=== PATIENT | female | born 1995 | race Caucasian/White ===

== ENCOUNTER 2017-03-13 00:54 | Inpatient (IN) | payer MEDICAID ==
--- NOTE | 2017-03-13 01:40 | EDPHY ---
H & P Stated Complaint: poss infection around feeding tube HPI/ROS: HPI CHIEF COMPLAINT: Infection around feeding tube. 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 She has never had an infection around this like this before. She was seen by [facility] earlier today and got IV Rocephin. However she tells me the redness and pain is worse this evening. No fever. She does tell me the swelling and pain around her PEG tube site has gotten worse. She became concerned the infection is getting worse and decided come the emergency room. Past Medical History: Mass cell disease, eosinophilic esophagitis, Иван- Danlos syndrome, mitochondrial disease Past Surgical History: PEG tube Social History: Denies daily use of drugs alcohol tobacco products. Family History: Noncontributory ROS REVIEW OF SYSTEMS: A comprehensive 10 point review of systems is otherwise negative aside from elements mentioned in the history of present illness. Exam Constitutional appears otherwise well nontoxic triage nursing summary reviewed , vital signs reviewed, awake/alert. Eyes normal conjunctivae and sclera, EOMI, PERRLA. HENT normal inspection, atraumatic, moist mucus membranes, no epistaxis, neck supple/ no meningismus, no raccoon eyes. Respiratory clear to auscultation bilaterally, normal breath sounds, no respiratory distress, no wheezing. Cardiovascular rate normal, regular rhythm, no murmur, no edema, distal pulses normal. Gastrointestinal mid abdomen peg tube site surrounding erythema very minimal pus, and a bullous looking lesion. no rebound, no guarding, normal bowel sounds , no distension, no pulsatile mass. Genitourinary no CVA tenderness. Musculoskeletal no midline vertebral tenderness, full range of motion, no calf swelling, no tenderness of extremities, no meningismus, good pulses, neurovascularly intact. Skin pink, warm, & dry, no rash, skin atraumatic. Neurologic awake, alert and oriented x 3, AAOx3, moves all 4 extremities equally, motor intact, sensory intact, CN II-XII intact, normal cerebellar, normal vision, normal speech. Psychiatric normal mood/affect. Heme/Lymph/Immune no lymphadenopathy. Differential Diagnosis: Includes but is not limited to in no particular order anterior abdominal wall infection, MRSA infection, abdominal wall abscess, peg tube site infection Medical Decision Making: Plan for this patient IV establishment with IV blood draw, CT scan abdomen pelvis with IV contrast to help delineate to see how far this tracks. Re-evaluation: 0310AM: Patient's CT scan reviewed by Dr. Allen with me. This shows cellulitis surrounding infection of the PEG tube there is no intra-abdominal abscess. I have ordered this patient IV vancomycin. Blood cultures. Patient will be admitted to Dr. Bond, hospital service. She is hemodynamically stable no evidence sepsis. Source: Patient - Personal History LMP (Females 10-55): IUD In Place Current Tetanus Diphtheria and Acellular Pertussis (TDAP): Yes - Medical/Surgical History Hx Asthma: No Hx Chronic Respiratory Disease: No Hx Diabetes: No Hx Cardiac Disease: No Hx Renal Disease: No Hx Cirrhosis: No Hx Alcoholism: No Hx HIV/AIDS: No Hx Splenectomy or Spleen Trauma: No Other PMH: eosiophilic esophigitis, mass cell activation syndrome, иван damos syndrome, caldwell (postural orthostatic, tachycardia syndrome) mitochomdrial disease,. disaccharidase enzyme defficiency, celiac disease, migraines, vocal cord disfunction - Social History Smoking Status: Never smoked Constitutional: Initial Vital Signs Temperature (C) 37 C 03/13/17 01:04 Heart Rate 100 03/13/17 01:04 Respiratory Rate 97 H 03/13/17 01:04 Blood Pressure 109/69 03/13/17 01:04 O2 Delivery Mode Room Air Allergies/Adverse Reactions: corn syrup Allergy (Verified 03/13/17 01:03) gluten Allergy (Verified 03/13/17 01:03) lactose Allergy (Verified 03/13/17 01:03) Home Medications: Medication Instructions Recorded Buprenorphine [Butrans 7.5 mcg/hr] 1 each TD FR 03/13/17 Cetirizine [ZyrTEC 10 mg (*)] 10 mg PO HS 03/13/17 Cyclobenzaprine [Flexeril 10 MG 10 mg PO HS 03/13/17 (*)] DULoxetine [Cymbalta 60 MG (*)] 60 mg PO BID 03/13/17 Ergocalciferol [Vitamin D2 (*)] 50,000 unit PO TU 03/13/17 Fluticasone Nasal [Flonase Nasal 2 sprays NASAL HS 03/13/17 [place] (RX)] Gabapentin [Neurontin 100 MG (*)] 200 mg PO TID 03/13/17 Hydroxyzine 5mg/Ml Compounded 9 ml PO BID PRN 03/13/17 Imipramine HCl [Tofranil] 50 mg PO HS 03/13/17 Lansoprazole [PREVACID 30mg/10ml 30 mg PO DAILY 03/13/17 susp (Adult) (*)] Montelukast Sodium [Singulair 4 mg 8 mg PO DAILY18 03/13/17 (*)] Ondansetron Odt [Zofran Odt 4 mg 4 mg PO Q8HRS PRN 03/13/17 (*)] Propranolol HCl [Propranolol HCl 60 mg PO DAILY 03/13/17 ER] Ranitidine HCl [Zantac 75] 75 mg PO HS 03/13/17 Sennosides/Docusate Sodium 4 each PO BID 03/13/17 [Senna-Docusate Sodium Tablet] Spironolactone [Aldactone 50 MG 50 mg PO DAILY 03/13/17 (RX)] Veramyst 1 spray PO BID 03/13/17 diphenhydrAMINE [Benadryl 25 MG 25 mg PO HS PRN 03/13/17 (*)] Medical Decision Making - Data Points Laboratory Results: Laboratory Results 03/13/17 02:12 03/13/17 02:12 Medications Given: Enoxaparin Sodium (Lovenox) 40 mg SC DAILY [facility] Stop: 09/09/17 08:59 Last Admin: 03/13/17 10:21 Dose: Not Given Cefazolin Sodium/Dextrose (Ancef 1 Gm (Premix)) 50 mls @ 200 mls/hr IV Q8HRS [facility] PRN Reason: Protocol Stop: 04/12/17 21:59 Last Admin: 03/13/17 22:44 Dose: 50 mls Miscellaneous Medication (Fluticasone Nasal [Flonase Nasal [place]]) 2 sprays NASAL [facility] Stop: 09/09/17 20:59 Last Admin: 03/13/17 22:47 Dose: 2 spray Miscellaneous Medication (Gabapentin [Neurontin 100 Mg (*)]) 200 mg PO TID [facility] Stop: 09/09/17 21:59 Last Admin: 03/13/17 22:47 Dose: 2 tab Miscellaneous Medication (Cetirizine [Zyrtec 10 Mg (*)]) 0 mg PO HS [facility] Stop: 09/09/17 22:44 Last Admin: 03/13/17 22:48 Dose: 10 mg Miscellaneous Medication (Duloxetine [Cymbalta 60 Mg (*)]) 0 mg PO BID [facility] Stop: 09/09/17 22:44 Last Admin: 03/13/17 22:46 Dose: 60 mg Miscellaneous Medication (Ranitidine Hcl [Zantac 75]) 0 mg PO [facility] Stop: 09/09/17 22:44 Last Admin: 03/13/17 22:44 Dose: 150 mg Miscellaneous Medication (Montelukast Sodium [Singulair 4 Mg (*)]) 0 mg PO DAILY18 [facility] Stop: 09/09/17 22:44 Last Admin: 03/13/17 23:11 Dose: Not Given Miscellaneous Medication (Sennosides/Docusate Sodium [Senna-Docusate Sodium Tablet]) 0 each PO BID [facility] Stop: 09/09/17 22:44 Last Admin: 03/13/17 22:46 Dose: 4 tab Miscellaneous Medication (Cyclobenzaprine [Flexeril 10 Mg (*)]) 0 mg PO [facility] Stop: 09/09/17 22:44 Last Admin: 03/13/17 22:45 Dose: 10 mg Miscellaneous Medication (Imipramine Hcl [Tofranil]) 0 mg PO [facility] Stop: 09/09/17 22:44 Last Admin: 03/13/17 22:47 Dose: 25 mg Miscellaneous Medication (Veramyst) 0 spray PO BID [facility] Stop: 09/09/17 23:14 Last Admin: 03/13/17 23:12 Dose: Not Given Discontinued Medications Sodium Chloride (Ns) 1,000 mls @ 0 mls/hr IV EDNOW ONE; [facility] PRN Reason: Protocol Stop: 03/13/17 01:45 Last Admin: 03/13/17 02:18 Dose: Not Given Vancomycin/Sodium Chloride (Vancomycin 1 Gm (Premix)) 250 mls @ 250 mls/hr IV EDNOW ONE PRN Reason: Protocol Stop: 03/13/17 04:07 Last Admin: 03/13/17 04:14 Dose: 250 mls Vancomycin HCl 1.25 gm/ (Dextrose) 250 mls @ 166.667 mls/hr IV Q12H [facility] Stop: 04/12/17 15:59 Last Admin: 03/13/17 17:22 Dose: 250 mls Vancomycin HCl 1.25 gm/ (Dextrose) 250 mls @ 125 mls/hr IV Q12H [facility] Stop: 04/12/17 17:29 Last Admin: 03/13/17 23:10 Dose: Not Given Miscellaneous Medication (Veramyst) 0 spray PO BID [facility] Stop: 09/09/17 20:59 Last Admin: 03/13/17 23:08 Dose: Not Given Miscellaneous Medication (Cetirizine [Zyrtec 10 Mg (*)]) 10 mg PO [facility] Stop: 09/09/17 20:59 Last Admin: 03/13/17 23:08 Dose: Not Given Miscellaneous Medication (Cyclobenzaprine [Flexeril 10 Mg (*)]) 10 mg PO [facility] Stop: 09/09/17 20:59 Last Admin: 03/13/17 23:09 Dose: Not Given Miscellaneous Medication (Duloxetine [Cymbalta 60 Mg (*)]) 60 mg PO BID [facility] Stop: 09/09/17 20:59 Last Admin: 03/13/17 23:09 Dose: Not Given Miscellaneous Medication (Imipramine Hcl [Tofranil]) 50 mg PO [facility] Stop: 09/09/17 20:59 Last Admin: 03/13/17 23:09 Dose: Not Given Miscellaneous Medication (Montelukast Sodium [Singulair 4 Mg (*)]) 8 mg PO DAILY18 [facility] Stop: 09/09/17 17:59 Last Admin: 03/13/17 23:10 Dose: Not Given Miscellaneous Medication (Ranitidine Hcl [Zantac 75]) 75 mg PO [facility] Stop: 09/09/17 20:59 Last Admin: 03/13/17 23:10 Dose: Not Given Miscellaneous Medication (Sennosides/Docusate Sodium [Senna-Docusate Sodium Tablet]) 4 each PO BID [facility] Stop: 09/09/17 20:59 Last Admin: 03/13/17 23:10 Dose: Not Given Departure - Departure Disposition: [facility] Acute Clinical Impression: Abdominal wall cellulitis, Infection of PEG site Condition: Fair
[2017-03-13] MEDS ORDERED: NS 1,000 ML IV ONE (01:44)
[2017-03-13] MEDS ORDERED: IOPAMIDOL (ISOVUE-300) 100 ML BTL ONE (01:47)
[2017-03-13 02:19] LABS: % IMMATURE GRANULYOCYTES 0.3 % (0.0-1.1); ABSOLUTE IMMATURE GRANULOCYTES 0.03 10^3/uL (0.00-0.10); ADD DIFF? NO; ADD MORPH? NO; ADD SCAN? NO; ATYPICAL LYMPHOCYTE FLAG 0 (0-99); FRAGMENT RBC FLAG 0 (0-99); HEMATOCRIT 40.3 % (38.0-47.0); HEMOGLOBIN 13.3 g/dL (12.6-16.3); LEFT SHIFT FLG 0 (0-99); LIPEMIA HEMOLYSIS FLAG 80 (0-99); MEAN CELL HEMOGLOBIN 29.6 pg (27.9-34.1); MEAN CELL VOLUME 89.6 fL (81.5-99.8); PLATELET CLUMPS FLAG 0 (0-99); PLATELET COUNT 331 10^3/uL (150-400); RED CELL DISTRIBUTION WIDTH 12.3 % (11.5-15.2)
[2017-03-13 02:27] LABS: PROTIME(PATIENT) 13.1 SEC (12.0-15.0); SEDIMENTATION RATE 13 MM/HR (0-20)
[2017-03-13 02:28] LABS: APTT 30.7 SEC (23.0-38.0)
[2017-03-13 02:33] LABS: ALANINE AMINOTRANSFERASE 27 IU/L (9-52); ALBUMIN 3.7 g/dL (3.5-5.0); ALKALINE PHOSPHATASE 52 IU/L (38-126); ANION GAP 11 mEq/L (8-16); ASPARTATE AMINOTRANSFERASE 22 IU/L (14-46); BILIRUBIN,TOTAL 0.6 mg/dL (0.1-1.4); BILIRUBIN-CONJUGATED 0.4 mg/dL (0.0-0.5); BILIRUBIN-UNCONJUGATED 0.2 mg/dL (0.0-1.1); C-REACTIVE PROTEIN 9.3 mg/L (<10.0); CALCIUM 9.2 mg/dL (8.5-10.4); CARBON DIOXIDE 21 mEq/l (22-31); CHLORIDE 105 mEq/L (97-110); CREATININE 0.6 mg/dL (0.6-1.0); GLOMERULAR FILTRATION RATE > 60; GLUCOSE 112 mg/dL (70-100); POTASSIUM 4.3 mEq/L (3.5-5.2); SODIUM 137 mEq/L (134-144); TOTAL PROTEIN 6.8 g/dL (6.3-8.2)
[2017-03-13] MEDS ORDERED: VANCOMYCIN HCL/NORMAL SALINE 250 ML IV ONE (03:08)
[2017-03-13] MEDS ORDERED: ONDANSETRON 4 MG/2 ML VIAL IVP PRN (03:49)
[2017-03-13] MEDS ORDERED: ONDANSETRON DISINTEGRATING 4 MG TAB PO PRN (03:49)
[2017-03-13] MEDS ORDERED: ACETAMINOPHEN 325 MG TAB PO PRN (03:49)
--- NOTE | 2017-03-13 05:02 | GHP ---
[f rep st] HISTORY AND PHYSICAL DATE OF ADMISSION: 03/13/2017 CHIEF COMPLAINT: Redness around the PEG tube. HISTORY OF PRESENT ILLNESS: A 21-year-old female with a complicated medical history, including eosi nophilic esophagitis requiring a PEG tube that was placed over 8 years ago by a pediatric provider, who presents with increasing erythema, swelling and pain at the left inferior margin of her PEG tube . The patient is entirely tube feed dependent taking the bulk of her nutritional intake that way. She has had her PEG tube for over 8 years and has not had any complications with it. Describes occa sionally getting some irritation around the PEG tube, which she places a topical skin protectant ove r and the erythema and/or irritation resolves. This new area of erythema associated with a small sc arring area developed increasing swelling and then erythema with associated marked discomfort when p alpating around this raised red area. Therefore, the patient presented to the emergency department for evaluation. She reports some subjective fevers. No chills. Denies any nausea or vomiting. De nies any changes in her bowel habits. She uses stool softeners and has typically slightly constipat ed stool once a day. Denies any dysuria, hematuria, lower extremity edema, vision changes, headache . PAST MEDICAL HISTORY: 1. Eosinophilic esophagitis requiring permanent PEG tube. 2. Иван-Danlos syndrome. 3. Mast cell disease. 4. POTS syndrome. 5. 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 SOCIAL HISTORY: Patient lives at home. Has very limited activity. Denies tobacco, alcohol or illi cit drugs. FAMILY HISTORY: Positive for eosinophilic esophagitis and Иван-Danlos in her father's side. REVIEW OF SYSTEMS: A 10-point review of systems is negative with the exception of that reported in the HPI. PHYSICAL EXAMINATION: VITAL SIGNS: Blood pressure 101/74, heart rate 84, respiratory rate 16, 96% on room air, 36.6. GENERAL: This is a pleasant young obese female lying flat in bed. HEENT: Nota ble for moist mucous membranes. Eye exam is negative for any icterus. CARDIAC: Patient is regular rate and rhythm. PULMONARY: Clear to auscultation bilaterally. GASTROINTESTINAL: Positive bowel sounds. ABDOMEN: Soft. The patient is tender to palpation near the erythematous area, near her P EG tube. Otherwise nontender. MUSCULOSKELETAL: Negative for any lower extremity edema. SKIN: Roby stuart has a nickel-sized enlarged swollen area at the left inferior margin of her PEG tube that is m arkedly tender on palpation, and per pictures provided, has been extending. When pushed around the perimeter, some purulent material is expressible from the PEG tube site. NEUROLOGIC: Patient is al ert and oriented x3. PSYCHIATRIC: She is pleasant and cooperative on interview and examination. DATA: White count 10.4, hematocrit 40.3, platelets of 331, creatinine 0.6, liver function tests nor mal. Beta HCG negative. CT of the abdomen, which I personally reviewed and interpreted shows the G -tube with enhancement of the abdominal wall anteriorly. No free air or ascites noted by Radiology. No abscesses noted. ASSESSMENT AND PLAN: This is a 21-year-old female, presenting with pain and erythema at her gastros nawaf tube site. 1. Acute cellulitis/percutaneous endoscopic gastrostomy tube infection. Based on the CT imaging, d oes not appear that there is a deeper abscess present, but when placing pressure on the skin, purule nt material is expressible from the percutaneous endoscopic gastrostomy tube site. Will initiate in travenous vancomycin after blood cultures are drawn in the emergency department. Did briefly discus s the case with the emergency room doctor. Will consult Surgery in the morning for recommendations related to percutaneous endoscopic gastrostomy tube exchange, as well as possible [place] gastrostom y for a more permanent feeding tube access. 2. Eosinophilic esophagitis with require percutaneous endoscopic gastrostomy tube. This is a perma nent condition for this patient. She requires continuous tube feeds or else she develops postural o rthostatics symptoms. Again, will consult with Surgery. Continue her tube feeds per her normal reg imen. 3. Acute leukocytosis presumed secondary to cellulitis. Will empirically treat with IV vancomycin and await blood culture results. 4. Иван-Danlos syndrome. The patient certainly has affected soft-tissue healing. The area of ce llulitis is associated with a previous scar. Will continue home medications. 5. Diet. The patient uses a special formulation of tube feeds. Will have dietary consult with her mom for mixing and continuation of this while in the hospital. Based on laboratories, I do not bel ieve she needs additional fluid resuscitation. 6. Prophylaxis with Lovenox. DISPOSITION: Expecting greater than 2 midnights as the patient is presenting with cellulitis requir ing IV antibiotics and surgical consultation. I have discussed the case with the emergency room ivan pike. Patient will be triaged to the medical-surgical floor for care. /[id number]/MODL
[2017-03-13] MEDS: ENOXAPARIN 40 MG/0.4 ML SYR SC SCH (10:21)
[2017-03-13] MEDS ORDERED: HYDROXYZINE PO PRN (13:12)
[2017-03-13] MEDS ORDERED: ONDANSETRON 4 MG PO PRN ×2 (13:12→17:40)
[2017-03-13] MEDS ORDERED: DIPHENHYDRAMINE 25 MG PO PRN ×3 (13:12→23:10)
--- NOTE | 2017-03-13 13:36 | WOCRNPDOC ---
WOCRN Advanced Assessment Note - Skin Integrity Problem, Advanced Assess Left Upper Abdomen Drain Site Dressing Type: Open to Air Exudate Amount: Moderate Exudate Color: Clear, Yellow Exudate Characteristic(s): Clear, Stringy Lakeisha Wound Tissue: Erythema Skin Integrity Problem Comment: Wound care consulted to address lakeisha peg-tube erythema. Approximately 2x2 cm raised blister noted distal to peg insertion site. Lakeisha drain skin with minimal erythema and not in need of a dressing at this time. May apply Dimethicone cream to area BID or use patient's cream from home per patient request/verbalization of need. Wound care will sign off. Please reconsult prn.
[2017-03-13] MEDS ORDERED: GABAPENTIN 200 MG PO SCH ×2 (16:00→22:00)
[2017-03-13] MEDS ORDERED: VANCOMYCIN 1.25 GM in D5W 250 ML IV SCH ×2 (16:00→17:30)
[2017-03-13] MEDS ORDERED: diphenhydrAMINE 25 MG CAP PO PRN (17:19)
[2017-03-13 17:59] LABS: COLOR YELLOW; LEUKOCYTE ESTERASE,URINE NEGATIVE (NEGATIVE); NITRITE,URINE NEGATIVE (NEGATIVE)
[2017-03-13] MEDS ORDERED: MONTELUKAST SODIUM PO SCH ×2 (18:00)
--- NOTE | 2017-03-13 18:33 | HOSPPROG ---
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 She still has the same pain adjacent to her PEG tube site. She has been eating okay and having bowel movements. She does mention that she had some slight tightness in her throat and redness to the skin on her face toward the end of her morning vancomycin dose today and similar episode this evening despite taking Benadryl. The vancomycin was stopped by the nurse On my examination she has still no fever or other abnormalities vitals. I see a small area of cellulitis inferior to her PEG site but more concerning there is a small for collection of watery fluid in this area on the abdominal wall. I am able to use press on this area and squeeze this slightly turbid but watery fluid out of the subcutaneous pocket from where it emerges through her PEG tube insertion site out on her abdominal wall. I have obtained a culture of this fluid. Due to the patient's side effects with vancomycin ( which I think are likely histamine or bradycardia in mediated not necessarily allergic) she is not wanting to continue this medicine. I think with her illness has mild disease is we can probably switch to Ancef and watch closely. We did get blood cultures in the ER before she started her antibiotics this morning but I think it is unlikely blood cultures will grow an organism. I have gotten the culture from the fluid in her abdominal wall after a single dose of vancomycin and hopefully we might find something there. I have reviewed her CT scan and I think she probably has a small abscess there in the abdominal wall by my exam and the CT scan. I have asked Dr. Lefty Tan to see the patient to determine if this should be on removed or otherwise surgically treated Objective: Vital Signs Temp Pulse Resp BP Pulse Ox 36.6 C 88 16 100/70 99 03/13/17 16:00 03/13/17 18:06 03/13/17 18:06 03/13/17 18:06 03/13/17 18:06 03/12/17 03/13/17 03/14/17 06:59 06:59 06:59 Intake Total 347 1000 Output Total 600 Balance 347 400 PT 13.1 SEC (12.0-15.0) 03/13/17 02:12 INR 1.00 (0.83-1.16) 03/13/17 02:12 ICD10 Worksheet Patient Problems: Problems Problem Status Onset Abdominal wall cellulitis Acute Infection of PEG site Acute
[2017-03-13] MEDS ORDERED: CETIRIZINE 10 MG PO SCH ×3 (21:00→22:45)
[2017-03-13] MEDS ORDERED: NON-FORMULARY NEW DRUG (Fluticasone Nasal [Flonase Nasal Spray] 2 SPRAYS) NASAL SCH (21:00)
[2017-03-13] MEDS ORDERED: (Imipramine Hcl [Tofranil] 50 MG) PO SCH (21:00)
[2017-03-13] MEDS ORDERED: [UNRECOGNIZED DRUG - OTHER] PO SCH (21:00)
[2017-03-13] MEDS ORDERED: DULOXETINE 60 MG PO SCH ×3 (21:00→22:45)
[2017-03-13] MEDS ORDERED: SENNOSIDES PO SCH ×2 (21:00)
[2017-03-13] MEDS ORDERED: RANITIDINE HCL 75 MG PO SCH ×2 (21:00→22:45)
[2017-03-13] MEDS ORDERED: DOCUSATE SODIUM PO SCH ×2 (21:00)
[2017-03-13] MEDS ORDERED: CYCLOBENZAPRINE 10 MG PO SCH ×3 (21:00→22:45)
[2017-03-13] MEDS ORDERED: FLUTICASONE NASAL SCH (21:00)
[2017-03-13] MEDS ORDERED: VERAMYST PO SCH ×2 (21:00)
[2017-03-13] MEDS ORDERED: NON-FORMULARY NEW DRUG (Ranitidine Hcl [Zantac 75] 75 MG) PO SCH (21:00)
[2017-03-13] MEDS ORDERED: IMIPRAMINE HCL 50 MG PO SCH (21:00)
[2017-03-13] MEDS ORDERED: [UNRECOGNIZED DRUG - OTHER] PO PRN (21:41)
[2017-03-13] MEDS ORDERED: IMIPRAMINE 25 MG PO SCH (22:45)
[2017-03-13] MEDS ORDERED: MONTELUKAST 4 MG PO SCH (22:45)
[2017-03-13] MEDS: [UNRECOGNIZED DRUG - OTHER] PO SCH (22:46)
[2017-03-13] MEDS ORDERED: FLUTICASONE FUROATE PO SCH (23:15)
[2017-03-14 04:50] LABS: % IMMATURE GRANULYOCYTES 0.2 % (0.0-1.1); ABSOLUTE IMMATURE GRANULOCYTES 0.01 10^3/uL (0.00-0.10); ADD DIFF? NO; ADD MORPH? NO; ADD SCAN? NO; ATYPICAL LYMPHOCYTE FLAG 10 (0-99); FRAGMENT RBC FLAG 0 (0-99); HEMATOCRIT 38.8 % (38.0-47.0); HEMOGLOBIN 12.6 g/dL (12.6-16.3); LEFT SHIFT FLG 0 (0-99); LIPEMIA HEMOLYSIS FLAG 80 (0-99); MEAN CELL HEMOGLOBIN 29.4 pg (27.9-34.1); MEAN CELL HEMOGLOBIN CONCENTR. 32.5 g/dL (32.4-36.7); MEAN CELL VOLUME 90.4 fL (81.5-99.8); MEAN PLATELET VOLUME 9.8 fL (8.7-11.7); PLATELET CLUMPS FLAG 0 (0-99); PLATELET COUNT 306 10^3/uL (150-400); RED BLOOD CELL COUNT 4.29 10^6/uL (4.18-5.33); RED CELL DISTRIBUTION WIDTH 12.4 % (11.5-15.2)
[2017-03-14] MEDS ORDERED: VANCOMYCIN 1.25 GM in D5W 250 ML IV SCH ×2 (06:30→07:00)
[2017-03-14] MEDS ORDERED: [UNRECOGNIZED DRUG - OTHER] PO SCH (08:00)
[2017-03-14] MEDS ORDERED: ERGOCALCIFEROL 50000 UNIT PO SCH ×3 (08:45→17:37)
[2017-03-14] MEDS ORDERED: LIDO/EPI 1% **Not for Epidural 20 ML MDV IF ONE (08:45)
[2017-03-14] MEDS ORDERED: ONDANSETRON DISINTEGRATING 4 MG TAB PO PRN (08:48)
[2017-03-14] MEDS ORDERED: LANSOPRAZOLE 30 MG PO SCH ×2 (09:00)
[2017-03-14] MEDS ORDERED: SPIRONOLACTONE 50 MG PO SCH ×2 (09:00)
[2017-03-14] MEDS ORDERED: PROPRANOLOL HCL 60 MG PO SCH ×2 (09:00)
[2017-03-14] MEDS ORDERED: FLUTICASONE NASAL 120 SPRAYS/16 GM MDI EACHNARE SCH (09:00)
[2017-03-14] MEDS: LANSOPRAZOLE 30 MG PO SCH (10:01)
[2017-03-14] MEDS: ENOXAPARIN 40 MG/0.4 ML SYR SC SCH (10:02)
[2017-03-14] MEDS: PROPRANOLOL SR 60 MG CAP PO SCH (10:03)
[2017-03-14] MEDS: SPIRONOLACTONE 50 MG TAB PO SCH (10:04)
[2017-03-14] MEDS: DULoxetine 60 MG CAP PO SCH ×2 (10:04→21:35)
[2017-03-14] MEDS: GABAPENTIN 200 MG PO SCH ×3 (10:05→21:33)
[2017-03-14] MEDS: [UNRECOGNIZED DRUG - OTHER] PO SCH ×2 (10:05→21:34)
[2017-03-14] MEDS: HYDROXYZINE PO PRN ×3 (10:09→23:23)
[2017-03-14] MEDS ORDERED: [UNRECOGNIZED DRUG - OTHER] PO PRN (10:09)
[2017-03-14] MEDS: [UNRECOGNIZED DRUG - OTHER] PO PRN ×2 (10:28→19:20)
[2017-03-14] MEDS: RANITIDINE HCL PO SCH ×2 (10:29→21:39)
[2017-03-14] MEDS ORDERED: NON-FORMULARY NEW DRUG (Ranitidine Hcl [Acid Reducer] 150 MG) PO SCH (10:30)
[2017-03-14] MEDS: CETIRIZINE 10 MG PO SCH ×2 (10:30→21:38)
[2017-03-14] MEDS ORDERED: LORazepam 2 MG/ML INJ IVP ONE (11:09)
[2017-03-14] MEDS: diphenhydrAMINE 25 MG CAP PO PRN ×2 (11:15→21:32)
[2017-03-14] MEDS ORDERED: LORazepam 1 MG TAB PO ONE (11:15)
[2017-03-14] MEDS: HYDROCODONE/APAP 5/325 TAB PO PRN ×2 (12:31→21:32)
--- NOTE | 2017-03-14 13:57 | SOAPPROG ---
SOAP Progress Note Assessment/Plan: Assessment/Plan: 21 Y F c hx eosinophilic esophagitis c primary routine of nutrition via G-tube now with per Gtube abscess/cellulitis. Purulence expressed with pressure at exam. Bedside I&D done today. Local abscess found--no obvious tracking appreciated. Wound packed. See procedure note. Continue IV abx. 03/14/17 13:52 Objective: Vital Signs Temp Pulse Resp BP Pulse Ox 36.6 C 86 14 95/65 L 96 03/14/17 12:00 03/14/17 12:00 03/14/17 12:00 03/14/17 12:00 03/14/17 12:00 Microbiology 03/13/17 18:20 Gram Stain - Final Abdomen - Swab Laboratory Results 03/14/17 04:29 03/13/17 03/14/17 03/15/17 05:59 05:59 05:59 Intake Total 347 1200 Output Total 800 Balance 347 400 PT 13.1 SEC (12.0-15.0) 03/13/17 02:12 INR 1.00 (0.83-1.16) 03/13/17 02:12 ICD10 Worksheet Patient Problems: Problems Problem Status Onset Abdominal wall cellulitis Acute Infection of PEG site Acute
--- NOTE | 2017-03-14 15:04 | HOSPPROG ---
Hospitalist Progress Note Assessment/Plan: 21-year-old female admitted with an abdominal wall inflammation pain and tenderness. Patient is new to me today since admission surgery has evaluated and done a bedside I and D with the finding of a abdominal wall abscess without tracking into the PEG tube tract. Patient is new to me today -abdominal wall abscess: Status post I and D today with cultures pending on antibiotic care. There is some pain and she is requesting pain medication which will be given. -eosinophilic esophagitis requiring a permanent PEG tube placement. As noted above the abscess site is next to the PEG tube track but apparently does not track into this area. We will continue her usual PEG tube feedings. 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 Plan: Continue IV antibiotics, await culture results, possible discharge in 1- 2 days on oral antibiotics. I have reviewed the surgical notes and discuss the matter with surgery and ID. Subjective: Reports abdominal pain and tenderness in the area of the abscess. No nausea vomiting diarrhea fever or chills Objective: Vital Signs Temp Pulse Resp BP Pulse Ox 36.6 C 86 14 95/65 L 96 03/14/17 12:00 03/14/17 12:00 03/14/17 12:00 03/14/17 12:00 03/14/17 12:00 Microbiology 03/13/17 18:20 Gram Stain - Final Abdomen - Swab Laboratory Results 03/14/17 04:29 03/13/17 03/14/17 03/15/17 05:59 05:59 05:59 Intake Total 347 1200 Output Total 800 Balance 347 400 PT 13.1 SEC (12.0-15.0) 03/13/17 02:12 INR 1.00 (0.83-1.16) 03/13/17 02:12 - Time Spent With Patient Time Spent with Patient: greater than 35 minutes Time Spent with Patient: Greater than 35 minutes spent on this patients care, greater than 50% of time spent counseling, educating, and coordinating care regarding the above mentioned plan. - Pending Discharge Pending Discharge Within 24 Hours: No Pending Discharge Within 48 Hours: Yes Pending Discharge Date: 03/16/17 Pending Discharge Time: 11:00 - Physical Exam Constitutional: no apparent distress Eyes: PERRL, anicteric sclera Ears, Nose, Mouth, Throat: moist mucous membranes, hearing normal Cardiovascular: regular rate and rhythym, no murmur, rub, or gallop Respiratory: no respiratory distress, no rales or rhonchi, clear to auscultation Gastrointestinal: tenderness, other (Area of raised tenderness and fluctuance next to the PEG tube site. The area is quite tender and fluid continue easily be expressed from it.) Genitourinary: no bladder fullness Skin: warm Musculoskeletal: full muscle strength Neurologic: AAOx3, CN II-XII Intact ICD10 Worksheet Patient Problems: Problems Problem Status Onset Abdominal wall cellulitis Acute Infection of PEG site Acute
[2017-03-14] MEDS ORDERED: MONTELUKAST SODIUM 4 MG CHEWABLE TAB PO SCH (18:00)
[2017-03-14] MEDS ORDERED: MONTELUKAST 4 MG PO SCH (18:00)
[2017-03-14] MEDS: CYCLOBENZAPRINE 10 MG TAB PO SCH (21:36)
[2017-03-14] MEDS: FLUTICASONE EACHNARE SCH (21:36)
[2017-03-14] MEDS: MONTELUKAST 4 MG PO SCH (21:37)
[2017-03-14] MEDS: IMIPRAMINE HCL 25 MG TAB PO SCH (21:40)
[2017-03-14] MEDS: FLUTICASONE FUROATE PO SCH (22:56)
[2017-03-14] MEDS ORDERED: POLYETHYLENE GLYCOL 3350 17 GM PKT PO SCH (23:15)
[2017-03-14] MEDS: POLYETHYLENE GLYCOL 3350 17 GM PKT PO SCH (23:21)
--- NOTE | 2017-03-15 08:01 | GPN ---
[f rep st] PROCEDURE NOTE DATE OF PROCEDURE: 03/14/2017 PROCEDURE: Incision and drainage of lakeisha-gastrostomy tube abscess. PREOPERATIVE DIAGNOSIS: Lakeisha-gastrostomy tube cellulitis and abscess. POSTOPERATIVE DIAGNOSIS: Lakeisha-gastrostomy tube cellulitis and abscess. DESCRIPTION OF PROCEDURE: Informed verbal consent was obtained. A time-out was performed. The are a was sterilized in the normal fashion with chlorhexidine. It was squared out with sterile towels. Adequate analgesia was achieved via infiltration of 1% lidocaine with epinephrine. A half-inch inc ision was made just inferior to her G-tube site at the most fluctuant area. A pocket was found, and mixed sanguinous and purulent material was drained. No tracts were found. The area was opened sli ghtly larger with a 15-blade scalpel. Hemostasis was achieved and the wound was packed with quarter -inch plain NuGauze. The wound was dressed with sterile gauze and her skin was protected around the G-tube with gauze. The procedure was uncomplicated and she tolerated it well. A culture was not s ent, as cultures were taken upon admission prior to antibiotic administration. /[id number]/MODL
[2017-03-15] MEDS: HYDROCODONE/APAP 5/325 TAB PO PRN ×3 (08:13→19:37)
[2017-03-15] MEDS: ENOXAPARIN 40 MG/0.4 ML SYR SC SCH (08:14)
[2017-03-15] MEDS: SPIRONOLACTONE 50 MG TAB PO SCH (08:14)
[2017-03-15] MEDS: GABAPENTIN 200 MG PO SCH ×4 (08:15→21:17)
[2017-03-15] MEDS: HYDROXYZINE PO PRN ×5 (08:16→23:02)
[2017-03-15] MEDS: DULoxetine 60 MG CAP PO SCH ×2 (08:16→21:14)
[2017-03-15] MEDS: PROPRANOLOL SR 60 MG CAP PO SCH (08:18)
[2017-03-15] MEDS: CETIRIZINE 10 MG PO SCH ×2 (08:19→21:14)
[2017-03-15] MEDS: RANITIDINE HCL PO SCH ×2 (08:20→21:16)
[2017-03-15] MEDS: FLUTICASONE FUROATE PO SCH ×2 (08:21→22:44)
[2017-03-15] MEDS: [UNRECOGNIZED DRUG - OTHER] PO SCH ×2 (08:22→21:11)
[2017-03-15] MEDS: LANSOPRAZOLE 30 MG PO SCH (10:28)
--- NOTE | 2017-03-15 10:42 | SOAPPROG ---
SOAP Progress Note Assessment/Plan: Assessment: 21yo female with PMH of esosinophilic esophagitis with primary routine nutrition via G tube presenting with local Gtbue abscess s/p bedside I&D. Wound repack with iodaform. Cont IV abx Cont pain control S: Patient nervous about repacking and requesting pain medication. Denies F/C N/ V. No other complaints. O: Afebrile NAD No increased WOB Abdomen soft, nontender, nondistended Iodaform gauze present in Gtube abscess wound. After unpacking, no major drainage or tracking appreciated. Local erythema and induration present. Objective: Vital Signs Temp Pulse Resp BP Pulse Ox 36.6 C 100 14 94/57 L 94 03/15/17 08:53 03/15/17 08:53 03/15/17 08:53 03/15/17 08:53 03/15/17 08:53 Microbiology 03/13/17 18:20 Gram Stain - Final Abdomen - Swab Laboratory Results 03/14/17 04:29 03/14/17 03/15/17 03/16/17 05:59 05:59 05:59 Intake Total 1200 500 Output Total 800 2950 Balance 400 -2450 PT 13.1 SEC (12.0-15.0) 03/13/17 02:12 INR 1.00 (0.83-1.16) 03/13/17 02:12 ICD10 Worksheet Patient Problems: Problems Problem Status Onset Abdominal wall cellulitis Acute Infection of PEG site Acute
[2017-03-15] MEDS: [UNRECOGNIZED DRUG - OTHER] PO PRN ×2 (11:52→21:32)
--- NOTE | 2017-03-15 15:43 | HOSPPROG ---
Hospitalist Progress Note Assessment/Plan: 21-year-old female admitted with an abdominal wall inflammation pain and tenderness. since admission surgery has evaluated and done a bedside I and D with the finding of a abdominal wall abscess without tracking into the PEG tube tract. Last 24 hours since the I and D the patient has been afebrile and her pain is persistent but decreased. -abdominal wall abscess: Status post I and D today with cultures pending on antibiotic care. There is some pain and she is requesting pain medication which will be given. -eosinophilic esophagitis requiring a permanent PEG tube placement. As noted above the abscess site is next to the PEG tube track but apparently does not track into this area. We will continue her usual PEG tube feedings. 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 Plan: Continue IV antibiotics, await culture results, possible discharge in 1- 2 days on oral antibiotics. I have reviewed the surgical notes and discuss the matter with surgery and ID. Disposition: Possible discharge in 1-2 days on oral antibiotics but will discuss the matter with surgery. Subjective: Reports she continues to have pain especially with palpation but the pain is less there is no nausea or vomiting. She has continued to take PEG tube feedings and her other medical problems are stable no fever chills Objective: Vital Signs Temp Pulse Resp BP Pulse Ox 36.8 C 91 18 111/75 94 03/15/17 11:52 03/15/17 11:52 03/15/17 11:52 03/15/17 11:52 03/15/17 11:52 Microbiology 03/13/17 18:20 Gram Stain - Final Abdomen - Swab Laboratory Results 03/14/17 04:29 03/14/17 03/15/17 03/16/17 05:59 05:59 05:59 Intake Total 1200 500 Output Total 800 2950 Balance 400 -2450 PT 13.1 SEC (12.0-15.0) 03/13/17 02:12 INR 1.00 (0.83-1.16) 03/13/17 02:12 - Time Spent With Patient Time Spent with Patient: greater than 25 minutes Time Spent with Patient: Greater than 25 minutes spent on this patients care, greater than 50% of time spent counseling, educating, and coordinating care regarding the above mentioned plan. - Pending Discharge Pending Discharge Within 24 Hours: No Pending Discharge Within 48 Hours: Yes Pending Discharge Date: 03/17/17 Pending Discharge Time: 11:00 - Physical Exam Constitutional: no apparent distress Eyes: PERRL, anicteric sclera Ears, Nose, Mouth, Throat: moist mucous membranes, hearing normal Cardiovascular: regular rate and rhythym, no murmur, rub, or gallop Respiratory: no respiratory distress, no rales or rhonchi, clear to auscultation Gastrointestinal: normoactive bowel sounds, other (Area of raised erythema and tenderness which is less erythematous than yesterday at the site of the PEG tube. There is packing in place in the wound has been dressed appropriately the rest of the abdomen is nontender) Genitourinary: no bladder fullness Skin: warm Musculoskeletal: full muscle strength Neurologic: AAOx3, CN II-XII Intact Psychiatric: interacting appropriately ICD10 Worksheet Patient Problems: Problems Problem Status Onset Abdominal wall cellulitis Acute Infection of PEG site Acute
--- NOTE | 2017-03-15 16:37 | ASMTCMCOM ---
CM Note CM Note Notes: Spoke w/pt and mother who is primary caregiver. They do not have any homecare and are ammenable to homehealth RN for wound care. CM discussed w/hospitalist and faxed referral, CM w/f. Date Signed: 03/15/2017 04:36 PM Electronically Signed By:Silvia Regan
[2017-03-15 19:27] VITALS: RESP 16
[2017-03-15] MEDS: MONTELUKAST 4 MG PO SCH (21:10)
[2017-03-15] MEDS: CYCLOBENZAPRINE 10 MG TAB PO SCH (21:12)
[2017-03-15] MEDS: IMIPRAMINE HCL 25 MG TAB PO SCH (21:12)
[2017-03-15] MEDS: POLYETHYLENE GLYCOL 3350 17 GM PKT PO SCH (21:13)
[2017-03-15] MEDS: FLUTICASONE EACHNARE SCH (21:15)
[2017-03-16] MEDS: HYDROCODONE/APAP 5/325 TAB PO PRN (09:17)
--- NOTE | 2017-03-16 09:26 | SOAPPROG ---
SOAP Progress Note Assessment/Plan: Assessment: 21yo female with PMH of esosinophilic esophagitis with primary routine nutrition via G tube presenting with local Gtbue abscess without obvious tracking to Gtube s/p bedside I&D. Cultures growing pansensitive Staph aureus. Wound repack with iodaform PO abx Dispo: to home today with visiting nurse for wound care once daily. Follow up in our office next week. S: Pain controlled. No complaints today. O: Afebrile NAD No increased WOB Abdomen soft, nontender, nondistended Iodaform gauze present in Gtube abscess wound. After unpacking, minimal drainage was able to be expressed. No tracking appreciated. Objective: Vital Signs Temp Pulse Resp BP Pulse Ox 36.4 C 83 16 108/67 95 03/16/17 07:21 03/16/17 07:21 03/16/17 07:21 03/16/17 07:21 03/16/17 07:21 Microbiology 03/13/17 18:20 Gram Stain - Final Abdomen - Swab Laboratory Results 03/14/17 04:29 03/15/17 03/16/17 03/17/17 05:59 05:59 05:59 Intake Total 500 Output Total 2950 1175 Balance -2450 -1175 PT 13.1 SEC (12.0-15.0) 03/13/17 02:12 INR 1.00 (0.83-1.16) 03/13/17 02:12 ICD10 Worksheet Patient Problems: Problems Problem Status Onset Abdominal wall cellulitis Acute Infection of PEG site Acute
[2017-03-16] MEDS: [UNRECOGNIZED DRUG - OTHER] PO SCH (09:58)
[2017-03-16] MEDS: GABAPENTIN 200 MG PO SCH (09:59)
[2017-03-16] MEDS: ENOXAPARIN 40 MG/0.4 ML SYR SC SCH (09:59)
[2017-03-16] MEDS: RANITIDINE HCL PO SCH (09:59)
[2017-03-16] MEDS: DULoxetine 60 MG CAP PO SCH (09:59)
[2017-03-16] MEDS: CETIRIZINE 10 MG PO SCH (09:59)
[2017-03-16] MEDS: FLUTICASONE FUROATE PO SCH (10:00)
[2017-03-16] MEDS: PROPRANOLOL SR 60 MG CAP PO SCH (10:01)
[2017-03-16] MEDS: SPIRONOLACTONE 50 MG TAB PO SCH (10:01)
[2017-03-16] MEDS: LANSOPRAZOLE 30 MG PO SCH (10:02)
[2017-03-16] MEDS: HYDROXYZINE PO PRN (10:09)
--- NOTE | 2017-03-16 11:25 | PDIAF ---
- Diagnosis Code Status: Full Code - Medication Management Discharge Medications: Medications to Continue on Transfer Buprenorphine [[place] 7.5 mcg/hr] 1 each TD FR 03/13/17 [Last Taken 03/10/17] Cetirizine [ZyrTEC 10 mg (*)] 10 mg PO BID 03/13/17 [Last Taken 03/12/17] Cyclobenzaprine [Flexeril 10 MG (*)] 10 mg PO HS 03/13/17 [Last Taken 03/12/17] DULoxetine [Cymbalta 60 MG (*)] 60 mg PO BID 03/13/17 [Last Taken 03/12/17 21:00 ] Ergocalciferol [Vitamin D2 (*)] 50,000 unit PO TU 03/13/17 [Last Taken 03/07/17] Fluticasone Nasal [Flonase Nasal [place]] 2 sprays NASAL HS 03/13/17 [Last Taken 03/12/17] Gabapentin [Neurontin 100 MG (*)] 200 mg PO TID 03/13/17 [Last Taken 03/12/17 21 :00] Hydroxyzine 5mg/Ml Compounded 9 ml PO 5XD PRN 03/13/17 [Last Taken Unknown] Imipramine HCl [Tofranil] 50 mg PO HS 03/13/17 [Last Taken 03/12/17] Lansoprazole [PREVACID 30mg/10ml susp (Adult) (*)] 30 mg PO DAILY 03/13/17 [ Last Taken 03/12/17] Montelukast Sodium [Singulair 4 mg (*)] 8 mg PO HS 03/13/17 [Last Taken 03/12/17 ] Ondansetron Odt [Zofran Odt 4 mg (*)] 4 mg PO Q8HRS PRN 03/13/17 [Last Taken 21:00] Propranolol HCl [Propranolol HCl ER] 60 mg PO DAILY 03/13/17 [Last Taken ] Sennosides/Docusate Sodium [Senna-Docusate Sodium Tablet] 4 each PO BID [Last Taken 03/12/17 21:00] Spironolactone [Aldactone] 50 mg PO DAILY 03/13/17 [Last Taken 03/12/17] Veramyst 1 spray PO BID 03/13/17 [Last Taken 03/12/17 21:00] diphenhydrAMINE [Benadryl 25 MG (*)] 25 mg PO HS PRN 03/13/17 [Last Taken ] Ranitidine HCl [Acid Case Making Machine Operator] 150 mg PO DAILY 03/14/17 [Last Taken Unknown] Sucraid (Saccrosidase) 56 drop PO QID PRN 03/14/17 [Last Taken Unknown] Cephalexin [Keflex] 750 mg PO BID #20 capsule 03/16/17 [Last Taken Unknown] Hydrocodone/Acetaminophen [[place] 5/325 (*)] 1 - 2 tab PO Q4H PRN #10 tab [Last Taken Unknown] Web Press Operator Assistant Antibiotics: keflex 750mg BID for 10 days Mcfp Antibiotic Stop Date: 03/26/17 Discharge Medications: Refer to the Discharge Home Medication list for PRN reason. PICC Care - Routine: N/A - Orders Services needed: Home Care, Registered Nurse, Certified Automobile Dealer Home Care Face to Face: I certify that this patient was under my care and that I had the required [id number] encounter meeting the encounter requirements on the discharge day. My findings support the fact that the patient is homebound as defined in CMS Chapter 7 Medicare Benefits Manual 30.1.1, The condition of the patient is such that there exists a normal inability to leave home and consequently, leaving home would require a considerable and taxing effort. Diet Recommendation: other (patient has self prescribed dietary limitation) Diet Texture: Regular Texture Diet [place]: Not applicable - Follow Up Care Current Providers and Referrals: Lefty Tan MD [Medical Doctor] - 3-5 days Estefania Martin MD [Primary Care Provider] - As per Instructions
--- NOTE | 2017-03-16 13:00 | ASDISCHSUM ---
Discharge Information Plan Status:Home with Home Health Medically Cleared to Leave: Discharge Date:03/16/2017 12:49 PM CM D/C Disposition:Home Health Service ADT D/C Disposition:[id number] Projected Discharge Date:03/16/2017 02:00 PM Transportation at D/C:Family Discharge Delay Reason: Follow-Up Date:03/16/2017 02:00 PM Discharge Slot: Final Diagnosis: Placement Information Referral Type:*Home Health Care Services Referral ID:[id number] Provider Name:[facility] Address 1:[address] [address] Phone Number: Address 2: Fax Number: City:[place] Selection Factors: State:[place] Patient Contact Information Contact Name:LATESHA Relationship:Mother Address:[address] Work Phone: City:[place] Alternate Phone: State/Zip Code:[place] [address] Email: Financial Information Financial Class: Primary Plan Desc:MED[place] Primary Plan Number:[id number] Secondary Plan Desc: Secondary Plan Number: Assessment Information [facility] Progress Note CM Note CM Note Notes: Spoke w/pt and mother who is primary caregiver. They do not have any homecare and are ammenable to homehealth RN for wound care. CM discussed w/hospitalist and faxed referral, JILL w/f. Date Signed: 03/15/2017 04:36 PM Electronically Signed By:Silvia Regan [facility] CM Progress Note CM Note CM Note Notes: Pt accepted by [facility], rep Guadalupe met w/pt and mother regarding HH RN. RN to see pt 3/week for dressing changes. Pt to dc home w/mother, dc orders faxed. Date Signed: 03/16/2017 12:58 PM Electronically Signed By:Silvia Regan Intervention Information
[2017-03-16 13:29] VITALS: BP 103/77; PULSE 95; TEMP 97.9; O2SAT 98
--- NOTE | 2017-03-16 15:16 | GDS ---
[f rep st] DISCHARGE SUMMARY KNOWN ACUTE DIAGNOSES: 1. Acute abdominal wall abscess status post incision and drainage. 2. Abdominal pain. 3. Chronic medical problems of mast cell disease, postural orthostatic tachycardia syndrome, and a mitochondrial dysfunction syndrome and percutaneous endoscopic gastrostomy tube placement permanentl y secondary to eosinophilic esophagitis. CONSULTATIONS: Surgery. PROCEDURES: Bedside irrigation and debridement performed by Surgery. HOSPITAL COURSE: A 21-year-old female, who has a long-term PEG tube placement because of eosinophil ic esophagitis. She has noted pain and swelling in the infra PEG tube placement area. She was note d to have tenderness, fluctuance, and drainage in the area and an I and D was performed successfully . Cultures grew Staph aureus, brito sensitive. It is a methicillin sensitive Staph aureus. She had received IV antibiotics and will be discharged on Keflex. Her pain is in good control. DISCHARGE MEDICATIONS: New medication is Keflex 750 mg p.o. b.i.d., #20; [place] 5/325 mg tablets 1-2 p.o. q.4 hours p.r.n. pain, #10. Her continued medications are cetirizine 10 mg b.i.d.; Zofran 4 mg q.8 hours p.r.n.; Tofranil 50 mg h.s.; Singulair 8 mg p.o. h.s.; Prevacid 30 mg daily; Neurontin 200 mg t.i.d.; Flexeril 10 mg h.s.; Cymbalta 60 mg b.i.d.; Benadryl 25 mg h.s. p.r.n. sleep; spironolactone 50 mg daily; Veramyst 1 spra y b.i.d.; Flonase nasal spray, 2 sprays in each nostril h.s.; buprenorphine 7.5 mcg patch to be give n transdermally once a week; senna 4 mg p.o. b.i.d.; propranolol 60 mg daily; hydroxyzine p.r.n. anx iety; vitamin D2 50,000 international units on Monday; sacrosidase 56 drops p.o. q.i.d.; ranitidine 150 mg p.o. daily. PLAN: She will follow up with Dr. Lefty Tan in 3-5 days and also see her primary care provider, Rola Veronica, in 1-2 weeks. TIME: This discharge required 50 minutes, greater than 50% to adult school counselor and coordinate her care. /[id number]/MODL
[2017-03-17] MEDS ORDERED: BUPRENORPHINE TD SCH ×2 (13:12→16:30)
== END 2017-03-16 12:49 | disposition home health service (06) | DRG 357 ==
LOC: F3E 04:23
PROVIDERS: ADMIT Hospitalist; ATTEND Hospitalist
PROC: 0W9F0ZZ Drainage of Abdominal Wall, Open Approach (ICD-10-PCS; principal; 2017-03-14)
DX: K94.22 Gastrostomy infection (principal); L02.211 Cutaneous abscess of abdominal wall; C96.2 Malignant mast cell neoplasm; Q79.6 Ehlers-Danlos syndromes; I49.8 Other specified cardiac arrhythmias; B95.61 Methicillin susceptible Staphylococcus aureus infection as the cause of diseases classified elsewhere; K20.0 Eosinophilic esophagitis
CPT/HCPCS: J0690; J1650; J3370; Q9967

== ENCOUNTER → 2017-04-05 | Outpatient (CLI) | payer MEDICAID | LOC: FIMAGING 10:01 | PROVIDERS: ATTEND Surgery | DX: K94.23 Gastrostomy malfunction (principal) ==

== ENCOUNTER 2017-05-08 06:03 | Day surgery (SDC) | payer MEDICAID ==
--- NOTE | 2017-05-07 22:33 | PDHPUP ---
History & Physical Update H&P update statement: This history and physical update is based on an assessment of the patient which was completed after admission or registration (within 24 hours), but prior to the surgery/procedure. H&P update: H&P reviewed & patient examined, no change in patient's condition since H&P completed
--- NOTE | 2017-05-08 07:09 | CPEKG ---
Heart Rate: 97 RR Interval: 619 P-R Interval: 164 QRSD Interval: 78 QT Interval: 336 QTC Interval: 427 P Clarks: 19 QRS Clarks: 38 T Wave Clarks: 42 EKG Severity - NORMAL ECG - EKG Impression: SINUS RHYTHM EKG Impression: Early repolarization Electronically Signed By: Fabian Simons 08-May-2017 12:49:34
[2017-05-08] MEDS ORDERED: NS 500 ML IV ONE (07:14)
[2017-05-08 07:23] LABS: ANION GAP 12 mEq/L (8-16); CALCIUM 8.8 mg/dL (8.5-10.4); CARBON DIOXIDE 22 mEq/l (22-31); CHLORIDE 105 mEq/L (97-110); CREATININE 0.6 mg/dL (0.6-1.0); GLOMERULAR FILTRATION RATE > 60; GLUCOSE 81 mg/dL (70-100); POTASSIUM 3.9 mEq/L (3.5-5.2); SODIUM 139 mEq/L (134-144)
--- NOTE | 2017-05-08 07:26 | PDANEPAE ---
ANE History of Present Illness EEOS surveilance with g tube inspection ANE Past Medical History - Cardiovascular History Hx Hypertension: No Hx Arrhythmias: Yes Hx Chest Pain: No Hx Coronary Artery / Peripheral Vascular Disease: No Hx CHF / Valvular Disease: No Hx Palpitations: No Cardiovascular History Comment: POSTURAL ORTHOSTATIC TACHYCARDIA TRIGGERED BY STRESS,HEAT & ODORS - Pulmonary History Hx COPD: No Hx Asthma/Reactive Airway Disease: No Hx Recent Upper Respiratory Infection: No Hx Oxygen in Use at Home: No Hx Sleep Apnea: No Sleep Apnea Screening Result - Last Documented: Negative Pulmonary History Comment: VOCAL CORD DYSFUNCTION - Neurologic History Hx Cerebrovascular Accident: No Hx Seizures: No Hx Dementia: No Neurologic History Comment: MIGRAINES - Endocrine History Hx Diabetes: No - Renal History Hx Renal Disorders: No - Liver History Hx Hepatic Disorders: No - Neurological & Psychiatric Hx Hx Neurological and Psychiatric Disorders: No - Cancer History Hx Cancer: No - Congenital Disorder History Hx Congenital Disorders: Yes - GI History Hx Gastrointestinal Disorders: Yes Gastrointestinal History Comment: ESOPHAGITIS -EOSINOPHILIC. DISACCHARIDASE DEFICIENCY. 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 COLONOSCOPIES. G TUBE PLACEMENT. LAPAROSCOPY ANE Review of Systems Review of systems is: negative Review of Systems: - Exercise capacity Exercise capacity: limited by disability METS (RN): 3 METS ANE Patient History - Allergies Allergies/Adverse Reactions: corn Allergy (Verified 05/08/17 07:11) Diarrhea corn syrup Allergy (Verified 03/13/17 01:03) gluten Allergy (Verified 03/13/17 01:03) lactose Allergy (Verified 03/13/17 01:03) vancomycin Allergy (Verified 05/08/17 07:11) Swelling/neck,face,throat - Home Medications Home Medications: Cetirizine [ZyrTEC 10 mg (*)] 10 mg PO BID 03/13/17 [Last Taken 05/08/17 05:15] Cyclobenzaprine [Flexeril 10 MG (*)] 10 mg PO HS 03/13/17 [Last Taken 05/08/17 05:15] DULoxetine [Cymbalta 60 MG (*)] 60 mg PO BID 03/13/17 [Last Taken 05/08/17 05:15 ] Ergocalciferol [Vitamin D2 (*)] 50,000 unit PO 03/13/17 [Last Taken 1 Week Ago ~05/01/17] Fluticasone Nasal [Flonase Nasal [place]] 2 sprays NASAL 03/13/17 [Last Taken 1 Day Ago ~05/07/17] Gabapentin [Neurontin 100 MG (*)] 200 mg PO TID 03/13/17 [Last Taken 05/08/17 05 :15] Hydroxyzine 5mg/Ml Compounded 9 ml PO 5XD PRN 03/13/17 [Last Taken 05/08/17 05: 15] Imipramine HCl [Tofranil] 50 mg PO 03/13/17 [Last Taken 1 Day Ago ~05/07/17] Lansoprazole [PREVACID 30mg/10ml susp (Adult) (*)] 30 mg PO DAILY 03/13/17 [ Last Taken 05/08/17 05:15] Montelukast Sodium [Singulair 4 mg (*)] 8 mg PO 03/13/17 [Last Taken 1 Day Ago ~05/07/17] Ondansetron Odt [Zofran Odt 4 mg (*)] 4 mg PO Q8HRS PRN 03/13/17 [Last Taken 2 Days Ago ~05/06/17] Propranolol HCl [Propranolol HCl ER] 60 mg PO DAILY 03/13/17 [Last Taken 05:15] Sennosides/Docusate Sodium [Senna-Docusate Sodium Tablet] 4 each PO BID [Last Taken 05/08/17 05:15] Spironolactone [Aldactone] 50 mg PO DAILY 03/13/17 [Last Taken 1 Day Ago ~] Veramyst 1 spray PO BID 03/13/17 [Last Taken 1 Day Ago ~05/07/17] diphenhydrAMINE [Benadryl 25 MG (*)] 25 mg PO PRN 03/13/17 [Last Taken 1 Day Ago ~05/07/17] Ranitidine HCl [Acid Client Support Coordinator] 150 mg PO DAILY 03/14/17 [Last Taken 05/08/17 05: 15] Sucraid (Saccrosidase) 56 drop PO QID PRN 03/14/17 [Last Taken 1 Day Ago ~] Alprazolam 05/05/17 [Last Taken 05/08/17 05:15] Oxycontin 05/05/17 [Last Taken 05/08/17 05:15] - NPO status NPO Since - Liquids (Date): 05/08/17 NPO Since - Liquids (Time): 02:45 NPO Since - Solids (Date): 05/07/17 NPO Since - Solids (Time): 06:40 - Smoking Hx Smoking Status: Never smoked - Family Anes Hx Family Hx Anesthesia Complications: NEG ANE Labs/Vital Signs - Labs Result Diagrams: 05/08/17 06:58 - Vital Signs Vital Signs: reviewed preoperatively; see RN documention for details Blood Pressure: 114/85 Heart Rate: 110 Respiratory Rate: 16 O2 Sat (%): 97 Height: 157.48 cm Weight: 83.915 kg ANE Physical Exam - Airway Neck exam: increased neck circumference Mallampati Score: Class 3 Mouth exam: normal dental/mouth exam - Pulmonary Pulmonary: no respiratory distress - Cardiovascular Cardiovascular: regular rate and rhythym - ASA Status ASA Status: III ANE Anesthesia Plan Anesthesia Plan: GA with mask
[2017-05-08] MEDS ORDERED: PROPOFOL/EMULSION 500 MG/50 ML BOTTLE IV ONE (07:28)
[2017-05-08] MEDS ORDERED: LIDOCAINE 2% 5 ML SDV ONE (07:28)
--- NOTE | 2017-05-08 07:57 | POSTOPPROG ---
Post Op Note Date of Operation: 05/08/17 Surgeon: Nas Huang Anesthesiologist: Jerry Galloway Anesthesia: Other (Specify) (IV General) Pre-op Diagnosis: EE, dysphagia, dysfunctional PEG Post-op Diagnosis: Same Procedure: EGD with biopsy Findings: upper esophageal erythematous changes, no ulcerations, normal PEG Inf/Abcess present in the surg proc area at time of surgery?: No EBL: Minimal Specimen(s): multiple biopsies
[2017-05-08] MEDS ORDERED: ONDANSETRON 4 MG/2 ML VIAL IVP PRN (08:00)
[2017-05-08] MEDS ORDERED: ALBUTEROL 3 ML DEYVIAL IH PRN (08:00)
[2017-05-08] MEDS ORDERED: NALOXONE HCL 0.4 MG/ML INJ IVP PRN (08:00)
--- NOTE | 2017-05-08 08:00 | POSTANESTH ---
Post Anesthetic Evaluation Cardiovascular Status: Normal, Stable Respiratory Status: Normal, Stable Level of Consciousness/Mental Status: Can Participate in Eval Pain Control: Adequate, Prn Tx Ordered Nausea/Vomiting Control: Adequate, Prn Tx Ordered Complications Possibly Related to Anesthesia: None Noted
[2017-05-08 08:49] VITALS: RESP 16
[2017-05-08 09:07] VITALS: PULSE 100; TEMP 204.8
--- NOTE | 2017-05-08 09:08 | GOP ---
[f rep st] OPERATIVE REPORT DATE OF OPERATION: 05/08/2017 SURGEON: Nas Huang MD ANESTHESIA: IV general. ANESTHESIOLOGIST: Jerry Galloway MD PREOPERATIVE DIAGNOSIS: 1. History of eosinophilic esophagitis. 2. Severe dysphagia with dysfunctional gastrostomy tube. 3. Query a mast cell activation syndrome. POSTOPERATIVE DIAGNOSIS: 1. History of eosinophilic esophagitis. 2. Severe dysphagia with dysfunctional gastrostomy tube. 3. Query a mast cell activation syndrome. PROCEDURE PERFORMED: Upper endoscopy with multiple biopsies. FINDINGS: INDICATIONS: A 22-year-old female with a longstanding history of dysphagia. She has a PEG [facility] p [facility], placed at an outside institution. Her PEG balloon continues to pop repetitively, and upper GI shows possible malpositioning of the internal button. She is undergoing an upper endoscopy at this t [facility] for G-tube assessment, follow up eosinophilic esophagitis changes, as well as to rule out mast ce ll activation syndrome. DESCRIPTION OF PROCEDURE: IV general anesthetic was started. The endoscope was easily passed throug h the oropharynx down to the third portion of the duodenum. The duodenum appeared normal. Portions of the first portion were obtained with cold biopsy forceps. The scope was easily withdrawn back int o the stomach. The pylorus showed minimal inflammatory changes with normal patency. Antral biopsies were obtained and sent for H pylori testing. The body of the stomach appeared normal. The G-tube b utton was in normal anatomic position. With external manipulation of the tube, there appeared to be appropriate laxity at the mucosal surface. On retroflexion, there was a small hiatal hernia noted wi thout inflammatory change. The scope was withdrawn back into the esophagus. There was a normal Z-li ne noted. The distal and mid esophagus appeared normal. The proximal showed areas of mild diffuse i nflammatory change without fissuring or craters. Multiple segmental biopsies were obtained; proximal , mid, and distal. No significant bleeding was noted at any biopsy site. The scope was withdrawn un eventfully, disclosing a normal oropharynx. The patient was taken to recovery awake uneventfully. /[id number]/MODL
[2017-05-08 09:23] VITALS: BP 102/79; O2SAT 95
== END 2017-05-08 09:34 | disposition home or self-care (01) ==
LOC: FSGY 06:03
PROVIDERS: ATTEND Surgery
PROC: 0DB98ZX Excision of Duodenum, Via Natural or Artificial Opening Endoscopic, Diagnostic (ICD-10-PCS; principal; 2017-05-08 07:30)
PROC: 0DB68ZX Excision of Stomach, Via Natural or Artificial Opening Endoscopic, Diagnostic (ICD-10-PCS; principal; 2017-05-08 07:30)
PROC: 0DB58ZX Excision of Esophagus, Via Natural or Artificial Opening Endoscopic, Diagnostic (ICD-10-PCS; principal; 2017-05-08 07:30)
DX: K94.23 Gastrostomy malfunction (principal); K20.0 Eosinophilic esophagitis; R13.10 Dysphagia, unspecified; K29.50 Unspecified chronic gastritis without bleeding
CPT/HCPCS: J2704

== ENCOUNTER 2017-08-20 15:17 | Emergency (ER) | payer OTHER, MEDICAID ==
--- NOTE | 2017-08-20 16:30 | EDPHY ---
H & P Stated Complaint: unable to get fdg tube back in Time Seen by Provider: 08/20/17 16:20 HPI/ROS: Chief Complaint: Can't replace G-tube HPI: 22-year-old woman with a history of eosinophilic esophagitis whose had a G -tube for about 8 years. Patient states that her G-tube came out which earlier today. She is attempted to replace it multiple times and is meeting resistance and is been having blood from the site and increasing pain. 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 She normally has no difficulties replaced in 2. No fevers or chills. Has no significant abdominal pain at this time. No nausea or vomiting. ROS: 10 point Review of Systems is negative except as noted in the HPI. PMH: Eosinophilic esophagitis with G-tube in place Social History: No smoking, no alcohol, no recreational drug use Family History: non-contributory Physical Exam: Gen: Awake, Alert, No Distress HEENT: Nose: no rhinorrhea Eyes: PERRLA, EOMI Mouth: Moist mucosa Abd: Soft, G-tube site has a G2 partially projecting. There is blood around the gastrostomy site. There is also small amount of blood in the G2 which is not in the correct position., no guarding Ext: no edema, non-tender Skin: no rash Neuro: CN II-XII intact, Sensation grossly intact, Strength 5/5 in bilateral upper and lower extremities - Personal History LMP (Females 10-55): IUD In Place Current Tetanus/Diphtheria Vaccine: Yes - Medical/Surgical History Hx Asthma: No Hx Chronic Respiratory Disease: No Hx Diabetes: No Hx Cardiac Disease: No Hx Renal Disease: No Hx Cirrhosis: No Hx Alcoholism: No Hx HIV/AIDS: No Hx Splenectomy or Spleen Trauma: No Other PMH: eosiophilic esophigitis, mass cell activation syndrome, murtaza damos syndrome, caldwell (postural orthostatic, tachycardia syndrome) mitochomdrial disease,. disaccharidase enzyme defficiency, celiac disease, migraines, vocal cord disfunction - Social History Smoking Status: Never smoked Constitutional: Initial Vital Signs Temperature (C) 36.5 C 08/20/17 15:45 Heart Rate 96 08/20/17 15:45 Respiratory Rate 17 08/20/17 15:45 Blood Pressure 111/78 08/20/17 15:45 O2 Sat (%) 96 08/20/17 15:45 O2 Delivery Mode Room Air Allergies/Adverse Reactions: corn Allergy (Verified 08/20/17 15:43) Diarrhea corn syrup Allergy (Verified 08/20/17 15:43) gluten Allergy (Verified 08/20/17 15:43) lactose Allergy (Verified 08/20/17 15:43) vancomycin Allergy (Verified 08/20/17 15:43) Swelling/neck,face,throat Home Medications: Medication Instructions Recorded Cetirizine [ZyrTEC 10 mg (*)] 10 mg PO BID 03/13/17 Cyclobenzaprine [Flexeril 10 MG 10 mg PO HS 03/13/17 (*)] DULoxetine [Cymbalta 60 MG (*)] 60 mg PO BID 03/13/17 Ergocalciferol [Vitamin D2 (*)] 50,000 unit PO TU 03/13/17 Fluticasone Nasal [Flonase Nasal 2 sprays NASAL HS 03/13/17 [place]] Gabapentin [Neurontin 100 MG (*)] 200 mg PO TID 03/13/17 Hydroxyzine 5mg/Ml Compounded 9 ml PO 5XD PRN 03/13/17 Imipramine HCl [Tofranil] 50 mg PO HS 03/13/17 Lansoprazole [PREVACID 30mg/10ml 30 mg PO DAILY 03/13/17 susp (Adult) (*)] Montelukast Sodium [Singulair 4 mg 8 mg PO HS 03/13/17 (*)] Ondansetron Odt [Zofran Odt 4 mg 4 mg PO Q8HRS PRN 03/13/17 (*)] Propranolol HCl [Propranolol HCl 60 mg PO DAILY 03/13/17 ER] Sennosides/Docusate Sodium 4 each PO BID 03/13/17 [Senna-Docusate Sodium Tablet] Spironolactone [Aldactone] 50 mg PO DAILY 03/13/17 Veramyst 1 spray PO BID 03/13/17 diphenhydrAMINE [Benadryl 25 MG 25 mg PO HS PRN 03/13/17 (*)] Ranitidine HCl [Acid Sintering Press Operator] 150 mg PO DAILY 03/14/17 Sucraid (Saccrosidase) 56 drop PO QID PRN 03/14/17 Alprazolam 05/05/17 traMADol 08/20/17 Medical Decision Making ED Course/Re-evaluation: Case discussed with Dr. Flores, interventional radiologist. She will take the patient to IR to replace her G-tube. [address] Flores. Gastric button has been replaced. She does his a 16 [place] is quite small. The room is also very small. The length of it barely allowed to pass into the stomach. She is recommending the patient use a larger 1 or eventually be switched over to a traditional G-tube. This will need to be done as an outpatient under sedation. Patient tolerated procedure well. Will discharge with follow-up with General surgery as an outpatient for further evaluation. - Data Points Medications Given: Discontinued Medications Sodium Chloride (Ns) 1,000 mls @ 0 mls/hr IV ONCE ONE; Wide Open PRN Reason: Protocol Stop: 08/20/17 17:42 Last Admin: 08/20/17 17:46 Dose: 1,000 mls Morphine Sulfate (Morphine) 4 mg IVP EDNOW ONE Stop: 08/20/17 17:41 Last Admin: 08/20/17 17:45 Dose: 4 mg Ondansetron HCl (Zofran) 4 mg IVP EDNOW ONE Stop: 08/20/17 17:42 Last Admin: 08/20/17 17:49 Dose: 4 mg Departure - Departure Disposition: Home, Routine, Self-Care Clinical Impression: Gastrostomy tube dysfunction Condition: Good Instructions: How to Use and Care for Your PEG Tube (ED) Additional Instructions: Dr. Flores, interventional radiologist, noted that the gastric button is quite short and is barely able to enter the stomach. In the future it will be important to use a longer tube. You might also consider converting to a larger traditional G-tube in the future. Discussed this with your primary care doctor and your surgeon. If this tube comes out again please try to bring a longer tube in for replacement. Referrals: Estefania Martin MD [Primary Care Provider] - As per Instructions Nas Huang MD [Medical Doctor] - As per Instructions
[2017-08-20 17:13] VITALS: RESP 18
[2017-08-20] MEDS ORDERED: NS 1,000 ML IV ONE (17:41)
[2017-08-20] MEDS ORDERED: ONDANSETRON 4 MG/2 ML VIAL IVP ONE (17:41)
[2017-08-20] MEDS ORDERED: IOPAMIDOL (ISOVUE-370) 150 ML BTL IV ONE (18:01)
[2017-08-20 18:39] VITALS: BP 108/84; PULSE 92; TEMP 98.6; O2SAT 96
== END 2017-08-20 18:49 | disposition home or self-care (01) ==
DX: K94.23 Gastrostomy malfunction (principal); E86.9 Volume depletion, unspecified
CPT/HCPCS: 76000; 96374; 96375; 99284; C1769; J2270; J2405; Q9967

== ENCOUNTER → 2018-10-04 | Outpatient (CLI) | payer OTHER, MEDICAID | LOC: FIMAGING 08:53 | PROVIDERS: ATTEND Surgery | DX: K94.20 Gastrostomy complication, unspecified (principal); R10.13 Epigastric pain ==